=== PATIENT | female | born 1990 | race African-American/Black ===

== ENCOUNTER 2016-09-19 13:25 | Emergency (ER) | payer OTHER ==
[~2016-09-19] VITALS: Ht 160 cm; Wt 75.0 kg
[~2016-09-19 13:25] MED LIST: FIORIC PO; MELO15TA2 PO; ZOFR4TAB3 SL
[2016-09-19 13:28] VITALS: BP 136/75; PULSE 106; RESP 16; TEMP 97.8; O2SAT 99
[2016-09-19] MEDS ORDERED: KETOROLAC TROMETHAMINE 60 MG/2 ML (IM) VIAL IM ONE (15:00)
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
[2016-09-19] MEDS ORDERED: IBUP800T23 PO (16:16)
== END 2016-09-19 16:43 | disposition home or self-care (01) ==
LOC: NEPB 13:25
DX: S83.92XA Sprain of unspecified site of left knee, initial encounter (principal); Y04.0XXA Assault by unarmed brawl or fight, initial encounter; Y93.9 Activity, unspecified; Y92.9 Unspecified place or not applicable; Y99.9 Unspecified external cause status
CPT/HCPCS: 73564; 96372; 99284; E0113; J1885